=== PATIENT | female | born 1955 | race African-American/Black ===

== ENCOUNTER → 2016-11-14 | Outpatient (CLI) | payer OTHER ==
[2015-05-16 22:48] VITALS: BP 120/77
[~2016-11-14] MED LIST: Albuterol Sulfate NEB; DIPH25CA58 PO; FAMO-68 PO; IBUP800T19 PO; METH4TAB2 PO
--- NOTE | 2016-11-14 14:08 | CARD ---
APPROVED REPORT EXAM: Two-dimensional and M-mode echocardiogram with Doppler and color Doppler. Other Information Quality : GoodHR: 75bpm Rhythm : NSR INDICATION Non ischemic cardiomyopathy RISK FACTORS Hypertension Obesity Family History 2D DIMENSIONS RVDd2.8 (2.9-3.5cm)Left Atrium(2D)3.4 (1.6-4.0cm) IVSd1.2 (0.7-1.1cm)Aortic Root(2D)3.0 (2.0-3.7cm) LVDd4.4 (3.9-5.9cm)LVOT Diameter2.2 (1.8-2.4cm) PWd1.3 (0.7-1.1cm)LVDs3.3 (2.5-4.0cm) FS (%) 23.9 %SV41.2 ml LVEF(%)47.9 (>50%) Aortic Valve AoV Peak Elia.124.2cm/sAoV VTI25.3cm AO Peak GR.6.2mmHgLVOT Peak Elia.98.3cm/s LVOT VTI 18.28cmAO Mean GR.3mmHg WIN (VMAX)2.86ws5QCO (VTI)2.64cm2 Mitral Valve MV E Xgvcqpmu93.5cm/sMV E Peak Gr.6mmHg MV DECEL [id number] A Ccezgjcw018.9cm/s MV E Mean Gr.2mmHgE/A Ratio0.7 MV A [id number] Pulmonary Valve PV Peak Gzusocny99.5cm/sPV Peak Grad.2mmHg LEFT VENTRICLE The left ventricle is normal size. There is mild concentric left ventricular hypertrophy. Left ventri prasanth systolic function is mildly impaired. The Ejection Fraction is 45%. There is mild global hypokine sis of the left ventricle. Transmitral Doppler flow pattern is Grade I-abnormal relaxation pattern. N o left ventricle thrombus noted on this study. RIGHT VENTRICLE The right ventricle is normal size. There is normal right ventricular wall thickness. The right ventr icular systolic function is normal. ATRIA The left atrium is mildly dilated. The right atrium size is normal. The interatrial septum is intact with no evidence for an atrial septal defect or patent foramen ovale as noted on 2-D or Doppler imagi ng. AORTIC VALVE The aortic valve is mildly thickened. Doppler and Color Flow revealed no significant aortic regurgita tion. There is no significant aortic valvular stenosis. MITRAL VALVE The mitral valve leaflets are thickened and calcified. There is no evidence of mitral valve prolapse. There is no mitral valve stenosis. Doppler and Color Flow revealed no mitral valve regurgitation not ed. TRICUSPID VALVE Doppler and Color Flow revealed trace tricuspid valve regurgitation. PULMONIC VALVE The pulmonic valve is not well visualized. Doppler and Color Flow revealed no pulmonic valvular regur gitation. There is no pulmonic valvular stenosis. GREAT VESSELS The aortic root is normal in size. The ascending aorta is normal in size. The IVC is normal in size a nd collapses >50% with inspiration. PERICARDIAL EFFUSION There is no evidence of significant pericardial effusion. Critical Notification Critical Value: No <Conclusion> Left ventricle systolic function is mildly impaired. The Ejection Fraction is 45%. Transmitral Doppler flow pattern is Grade I-abnormal relaxation pattern. Doppler and Color Flow revealed trace tricuspid valve regurgitation. There is no evidence of significant pericardial effusion.
== END | disposition home or self-care (01) ==
LOC: ECHO 09:17
PROVIDERS: ATTEND Internal Medicine Cardiovascular Disease
DX: I42.9 Cardiomyopathy, unspecified (principal); I07.1 Rheumatic tricuspid insufficiency
CPT/HCPCS: 93306

== ENCOUNTER → 2017-10-30 | Outpatient (CLI) | payer OTHER ==
[2015-05-16 22:48] VITALS: BP 120/77
[~2017-10-30] MED LIST changes: -FAMO-68 PO; +FAMO-69 PO
[2017-10-30 09:34] LABS: ALBUMIN 3.5 g/dL (3.4-5.0); CALCIUM 9.1 mg/dL (8.5-10.1); CREATININE 0.7 mg/dL (0.6-1.0); DIRECT BILIRUBIN 0.1 mg/dL (0.0-0.2); GFR 103.3; MAGNESIUM 1.8 mg/dL (1.8-2.4); POTASSIUM 3.7 mmol/L (3.5-5.1); TOTAL BILIRUBIN 0.3 mg/dL (0.2-1.0); TOTAL PROTEIN 7.4 g/dL (6.4-8.2)
== END | disposition home or self-care (01) ==
LOC: LAB 08:32
PROVIDERS: ATTEND Internal Medicine Cardiovascular Disease
DX: I10 Essential (primary) hypertension (principal); E11.9 Type 2 diabetes mellitus without complications; I42.9 Cardiomyopathy, unspecified; Z79.899 Other long term (current) drug therapy
CPT/HCPCS: 36415; 80048; 80061; 80076; 83735

== ENCOUNTER → 2018-06-05 | Outpatient (CLI) | payer MEDICARE ==
[2015-05-16 22:48] VITALS: BP 120/77
== END | disposition home or self-care (01) ==
LOC: LAB 08:51
PROVIDERS: ATTEND Internal Medicine Cardiovascular Disease
DX: E78.5 Hyperlipidemia, unspecified (principal)
CPT/HCPCS: 80061

== ENCOUNTER → 2018-07-15 | Outpatient (CLI) | payer MEDICARE ==
[2015-05-16 22:48] VITALS: BP 120/77
--- NOTE | 2018-07-15 15:24 | RAD ---
Right foot, 3 views, 07/15/2018: HISTORY: Foot pain There is a mild hallux valgus deformity with degenerative change at the first MTP joint. There is only minimal spurring at the mid foot level. No fracture or dislocation is identified. No destructive bony lesion is seen. There is moderate diffuse subcutaneous edema. IMPRESSION: 1. Mild hallux valgus deformity with moderate degenerative change at the first MTP joint. 2. No acute bony abnormality is detected. Electronically signed by: Lakhwinder Rice MD (07/15/2018 3:20 PM) [facility]
== END | disposition home or self-care (01) ==
LOC: RAD 14:43
PROVIDERS: ATTEND General Practice
DX: M20.11 Hallux valgus (acquired), right foot (principal); M19.071 Primary osteoarthritis, right ankle and foot; M77.51 Other enthesopathy of right foot and ankle; R60.0 Localized edema
CPT/HCPCS: 73630

== ENCOUNTER → 2018-11-19 | Outpatient (CLI) | payer MEDICARE, OTHER ==
[2015-05-16 22:48] VITALS: BP 120/77
--- NOTE | 2018-11-19 16:39 | RAD ---
Two-view right hip dated 11/19/2018. No comparison available. Clinical data indication: Right hip pain. No known injury. FINDINGS: 2 views right hip show normal bony alignment. No displaced fracture. No acute osseous or articular abnormality. No periostitis or bone destruction. IMPRESSION: No acute radiographic abnormality. Electronically signed by: Shayne Alvarado MD (11/19/2018 4:36 PM) [id number]
== END | disposition home or self-care (01) ==
LOC: RAD 10:27
PROVIDERS: ATTEND General Practice
DX: M25.551 Pain in right hip (principal)
CPT/HCPCS: 73502

== ENCOUNTER 2019-08-02 16:11 | Observation (INO) | payer MEDICARE, OTHER ==
[~2019-08-02] VITALS: Ht 162.6 cm; Wt 108.0 kg
--- NOTE | 2019-08-02 16:41 | PHYS DOC ---
Past History Past Medical History: CAD, Diabetes, DVT, High Cholesterol, Hypertension, Other Past Surgical History: Cholecystectomy, Hysterectomy Smoking: Non-smoker Alcohol Use: Occasionally Drug Use: None Adult General Chief Complaint Chief Complaint: CHEST PAIN HPI HPI Patient is a 64-year-old female with a history of cardiomyopathy, hypertension, hyperlipidemia, diabetes, DVT presents to the ED with chest pain. Patient states that she has experienced a left-sided chest pain that has been constant since Sunday. Pain is described as sharp and radiating to the left arm. Alleviating factors are none. Patient also reports some lower extremity swelling and shortness of breath, but these are chronic issues and she states that they have not gotten worse than baseline. Denies cough, fevers, or chills. Patient denies lower extremity pain. Denies rash. Denies trauma. Review of Systems Review of Systems Constitutional: Denies fever or chills Eyes: Denies redness or eye pain HENT: Denies nasal congestion or sore throat Respiratory: Reports cough and shortness of breath (chronic) Cardiovascular: Reports chest pain, denies palpitations GI: Denies abdominal pain, nausea, or vomiting : Denies dysuria or hematuria Musculoskeletal: Denies back pain or joint pain. Reports lower extremity swelling (chronic). Integument: Denies rash or skin lesions Neurologic: Denies headache, focal weakness or sensory changes Complete systems were reviewed and found to be within normal limits, except as documented in this note. Allergies Allergies Allergies Coded Allergies Type Severity Reaction Last Updated Verified Penicillins Allergy Severe sob 05/17/15 No shellfish derived Allergy Severe swelling, dyspnea and rash 05/17/15 No Uncoded Allergies Type Severity Reaction Last Updated Verified multiple foods Allergy Severe sob 04/26/14 Physical Exam Physical Exam Constitutional: Well developed, well nourished, no acute distress, non-toxic appearance HENT: Normocephalic, atraumatic, oropharynx moist Eyes: PERRL, EOMI, conjunctiva normal, no discharge Neck: Normal range of motion, no tenderness, supple Cardiovascular: Heart rate normal, regular rhythm Lungs & Thorax: Bilateral breath sounds clear to auscultation, no wheezing Abdomen: Soft, no tenderness Skin: Warm, dry, no erythema, no rash Back: No tenderness, no CVA tenderness Extremities: No tenderness, ROM intact, no edema Neurologic: Alert and oriented X 3, normal motor function, normal sensory function, no focal deficits noted Psychologic: Affect normal, judgement normal EKG EKG @1624 NSR at 89bpm, NO ST elevation, occasional PVC Radiology/Procedures Radiology/Procedures PROCEDURE: CT ANGIOGRAPHY CHEST Chest CTA History: Chest pain, elevated d-dimer Technique: After bolus of intravenous contrast, CT imaging was performed of the chest. Multiplanar reconstruction images to include MIP reconstruction images are submitted. Exposure: One or more of the following individualized dose reduction techniques were utilized for this examination: 1. Automated exposure control 2. Adjustment of the mA and/or kV according to patient size 3. Use of iterative reconstruction technique. Comparison: May 17, 2015 Findings: There is some motion degradation. There is also beam attenuation by the soft tissues. Accurate evaluation for pulmonary emboli is limited of the smaller and more distal branches, no embolism identified in the more central/ main pulmonary arteries or proximal segmental branches. There is again more reticular appearing density of the right lung base which is unchanged in appearance, evidence of fibrotic change. Major airways are patent. There is no pericardial or pleural fluid, pneumothorax, or lobar infiltrate. Tiny dense nodule posteriorly in the left upper lobe is unchanged about 0.3 cm image 39 series 4. Heart is somewhat enlarged. There is no new significant lymphadenopathy of the chest. Thoracic aortic caliber is within normal limits, no intraluminal flap. There is hepatic steatosis. There is multilevel thoracic degenerative disc disease. Impression: 1. No central pulmonary embolism is identified, limited evaluation of the more distal and smaller branches on this exam. 2. Heart is somewhat enlarged. 3. There is hepatic steatosis. Electronically signed by: Colin Chi MD (08/02/2019 7:11 PM) [facility] Course & Med Decision Making Course & Med Decision Making Pertinent Labs and Imaging studies reviewed. (See chart for details) Patient is a history of heart disease, hypertension, HTN, diabetes, and DVT presents to the ED with a week of sharp chest pain. EKG stable. Pain addressed. Labs obtained and posted to chart. D-dimer elevated. CTA ordered after review of records shows patient received IV dye without issues in the past. CTA chest without acute process. Troponin WNL. HEART score: 4 Patient requiring observation admission for further evaluation and treatment. Discussed with Dr. Kahn (hospitalist) who is in agreement with admission. Discuss ed findings and plan with patient and family, who acknowledge understanding and agreement. Patient was comfortably in the ED Dragon Disclaimer Dragon Disclaimer This electronic medical record was generated, in whole or in part, using a voice recognition dictation system. Departure Departure: Impression: Primary Impression: Chest pain Disposition: ADMITTED INPATIENT Admitting Physician: Orion Kahn Condition: STABLE Referrals: PCP,NO (PCP) HEART Score for Chest Pain PTs The HEART Score for CP Pts HEART Score for Chest Pain: HEART Score for Chest Pain Response (Comments) Value History Moderately Suspicious 1 ECG Normal 0 Age >45 - < 65 1 Risk Factors >3 Risk Factors or Hx CAD 2 Troponin < Normal Limit 0 Total 4 Risk Factors: Risk Factors: DM, Current or recent (<one month) smoker, HTN, HLP, family history of CAD, obesity. Risk Scores: Score 0 - 3: 2.5% MACE over next 6 weeks - Discharge Home Score 4 - 6: 20.3% MACE over next 6 weeks - Admit for Clinical Observation Score 7 - 10: 72.7% MACE over next 6 weeks - Early Invasive Strategies Problem Qualifiers Primary Impression: Chest pain Chest pain type: unspecified Qualified Codes: R07.9 - Chest pain, unspecified CLARK BURNS DO Aug 02, 2019 16:41
[2019-08-02 16:45] LABS: BASO # 0.1 x10^3/uL (0.0-0.2); BASO % 1 % (0-3); EOS # 0.3 x10^3/uL (0.0-0.7); EOS % 3 % (0-3); HEMATOCRIT 41.1 % (36.0-47.0); HEMOGLOBIN 13.8 g/dL (12.0-15.5); LYMPH % 26 % (24-48); MEAN CORPUSCULAR HEMOGLOBIN 33 pg (25-35); MEAN CORPUSCULAR HGB CONC 34 g/dL (31-37); MEAN CORPUSCULAR VOLUME 98 fL (79-100); MONO # 0.8 x10^3/uL (0.0-1.1); MONO % 10 % (0-9); NEUT # 4.8 x10^3uL (1.8-7.7); NEUT % 61 % (31-73); PLATELET COUNT 224 x10^3/uL (140-400); RED BLOOD COUNT 4.18 x10^6/uL (3.50-5.40); RED CELL DISTRIBUTION WIDTH 13.2 % (11.5-14.5); WHITE BLOOD COUNT 7.9 x10^3/uL (4.0-11.0)
[2019-08-02] MEDS ORDERED: IV NORMAL SALINE 1,000ML 1,000 ML IV ONE ×2 (16:45→19:45)
--- NOTE | 2019-08-02 17:04 | EKG ---
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
[2019-08-02 17:43] LABS: CALCIUM 8.8 mg/dL (8.5-10.1); CREATININE 0.6 mg/dL (0.6-1.0); GFR 122.6; POTASSIUM 3.2 mmol/L (3.5-5.1)
[2019-08-02 17:59] LABS: ALBUMIN 3.4 g/dL (3.4-5.0); ALBUMIN/GLOBULIN RATIO 0.9 (1.0-1.7); MAGNESIUM 1.8 mg/dL (1.8-2.4); TOTAL BILIRUBIN 0.2 mg/dL (0.2-1.0); TOTAL PROTEIN 7.1 g/dL (6.4-8.2)
[2019-08-02] MEDS ORDERED: IOHEXOL 350 MG/ML 100 ML VIAL. IV ONE (18:15)
[2019-08-02] MEDS ORDERED: ASPIRIN 325 MG TABLET PO ONE (18:15)
[2019-08-02] MEDS ORDERED: CONTRAST GIVEN MC PRN (18:15)
[2019-08-02] MEDS ORDERED: POTASSIUM CHLORIDE 20 MEQ TABLET.ER. PO ONE (18:15)
--- NOTE | 2019-08-02 19:14 | RAD ---
Chest CTA History: Chest pain, elevated d-dimer Technique: After bolus of intravenous contrast, CT imaging was performed of the chest. Multiplanar reconstruction images to include MIP reconstruction images are submitted. Exposure: One or more of the following individualized dose reduction techniques were utilized for this examination: 1. Automated exposure control 2. Adjustment of the mA and/or kV according to patient size 3. Use of iterative reconstruction technique. Comparison: May 17, 2015 Findings: There is some motion degradation. There is also beam attenuation by the soft tissues. Accurate evaluation for pulmonary emboli is limited of the smaller and more distal branches, no embolism identified in the more central/ main pulmonary arteries or proximal segmental branches. There is again more reticular appearing density of the right lung base which is unchanged in appearance, evidence of fibrotic change. Major airways are patent. There is no pericardial or pleural fluid, pneumothorax, or lobar infiltrate. Tiny dense nodule posteriorly in the left upper lobe is unchanged about 0.3 cm image 39 series 4. Heart is somewhat enlarged. There is no new significant lymphadenopathy of the chest. Thoracic aortic caliber is within normal limits, no intraluminal flap. There is hepatic steatosis. There is multilevel thoracic degenerative disc disease. Impression: 1. No central pulmonary embolism is identified, limited evaluation of the more distal and smaller branches on this exam. 2. Heart is somewhat enlarged. 3. There is hepatic steatosis. Electronically signed by: Colin Chi MD (08/02/2019 7:11 PM) [facility]
[2019-08-02] MEDS ORDERED: ONDANSETRON PF 4 MG/2 ML VIAL. IV PRN (19:45)
[2019-08-02] MEDS ORDERED: DEXTROSE 50% 25 GM / 50ML DISP.SYRIN. IV PRN (19:45)
--- NOTE | 2019-08-02 21:20 | NUR ---
The patient, AGNIESZKA BARNES, 64 y/o, F admitted by KEYONA MUÑOZ MD, was given written information regarding hospital policies, unit procedures and contact persons. Patient alert and oriented x 4. Patient oriented to room, bed, call light and plan of care. Patient denies any current c/o chest pain. Patient resting in bed with call light in reach. See admission assessment/documentation. Valuables were checked and .
[2019-08-02 21:36] VITALS: BP 149/93
[2019-08-02] MEDS ORDERED: CARV3.1230 PO (22:25)
[2019-08-02] MEDS ORDERED: GLIM1TAB7 PO (22:26)
[2019-08-02] MEDS ORDERED: FENO54TA PO (22:27)
[2019-08-02] MEDS ORDERED: FURO40TA4 PO (22:27)
[2019-08-02] MEDS ORDERED: TRIA1CAP3 PO (22:30)
[2019-08-02] MEDS ORDERED: CHOL200078 PO (22:30)
[2019-08-03 05:06] VITALS: BP 106/70
--- NOTE | 2019-08-03 05:23 | NUR ---
Routine consult for Dr. Griffin called to [phone].
[2019-08-03] MEDS ORDERED: INSULIN LISPRO 300 UNITS/3 ML VIAL. SQ SCH (08:00)
--- NOTE | 2019-08-03 08:27 | HP ---
ADMIT DATE: 08/03/2019 ATTENDING PHYSICIAN: Dr. Muñoz. CHIEF COMPLAINT: Chest pain. HISTORY OF PRESENT ILLNESS: The patient is a 64-year-old female with a known history of hypertension, hyperlipidemia, supposed cardiomyopathy, diabetes and previous DVT. She presented to the ED with a 5-day history of constant left-sided chest pain, sharp and radiating to the left arm. No alleviating factors. She denied any shortness of breath. She has had some chronic back pain and what it sounds like a left-sided sciatica pain. She has been taking a daily dose of ibuprofen, which I believe is the culprit. In the ED, she had entirely negative workup. Cardiac enzymes were initially negative. CT angiogram showed no blood clots, given the history of pulmonary embolus. She was admitted then for further treatment and evaluation. PAST MEDICAL HISTORY: Significant for DVT, type 2 diabetes, coronary artery disease, high cholesterol, hypertension. PAST SURGICAL HISTORY: Cholecystectomy and hysterectomy. CURRENT MEDICINES: Include Coreg, Lasix, Amaryl, and vitamin D3. ALLERGIES: SHE HAS MULTIPLE ALLERGIES INCLUDING PENICILLIN, SHELLFISH AND OTHER FOOD PRODUCTS. EXACT ETIOLOGY IS UNCLEAR. FAMILY HISTORY: Noncontributory. SOCIAL HISTORY: She was a smoker up to 10 years ago. She denies any alcohol use. She is currently not working. 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 She is and lives with her . REVIEW OF SYSTEMS: Significant for the localized chest pain. She has been taking ibuprofen. No fevers, chills, palpitations. She has had left-sided sciatica pain starting in her back, radiating down the left buttock down the lateral portion of her leg. The pain is worse upon standing and improved upon sitting. All other systems reviewed and determined to be negative. PHYSICAL EXAMINATION: GENERAL: When I saw her, this is a pleasant female who was alert and oriented. INITIAL VITAL SIGNS: Showed a blood pressure of 149/93, pulse of 78 and regular. She was afebrile. Oxygen saturation 97% on room air. HEENT: Head is without trauma. Pupils are reactive. Sclerae nonicteric. Oropharynx is clear. NECK: Supple, no bruits identified. LUNGS: Otherwise clear. CARDIOVASCULAR: Showed regular heart tones. No obvious gallops. Peripheral pulses are palpable and full. ABDOMEN: Obese, protuberant. No organomegaly. Bowel sounds were hypoactive. EXTREMITIES: Showed no cyanosis or edema. NEUROLOGIC: Findings focally intact. No focal deficits. Speech was fluid. PERTINENT LABORATORY STUDIES AND X-RAY STUDIES: The CT angiogram showed no evidence of blood clot. Cardiac enzymes initially were negative for myocardial necrosis. EKG was nondiagnostic. LABORATORY STUDIES: Hemoglobin was 13.8 g/dL with white count of 7900. Chemistry panel, initial set of cardiac enzymes negative for myocardial necrosis. Sodium 143, potassium 3.2 mEq. This will be replaced. Glucose was 100. ASSESSMENT: 1. A 64-year-old female with a localized chest discomfort. I believe this is noncardiac in nature. 2. Probable gastroesophageal reflux disease, aggravated by the ibuprofen and NSAID gastritis. 3. Left-sided sciatica. 4. Essential hypertension. 5. Type 2 diabetes. 6. History of pulmonary embolus in the past. PLAN: 1. Observation status admission. 2. Serial enzymes. 3. Proton pump inhibitor. 4. Potassium replacement. 5. Percocet p.r.n. pain. KEYONA UMÑOZ MD DR: LUBA/jovany JOB#: [id number] / [id number]
--- NOTE | 2019-08-03 08:32 | DS ---
DATE OF DISCHARGE: 08/03/2019 ATTENDING PHYSICIAN: Dr. Muñoz. FINAL DISCHARGE DIAGNOSES: 1. Atypical chest pain, noncardiac. 2. NSAID gastritis. 3. Gastroesophageal reflux disease. 4. Obesity. 5. Hypertension. 6. Type 2 diabetes. 7. Left-sided sciatica. 8. History of degenerative disk disease. HISTORY AND PHYSICAL: This is a pleasant 64-year-old female admitted to the ED with atypical left-sided chest pain radiating down her arm, constant, ongoing for the last 5 days. PHYSICAL EXAMINATION: Please see the dictated note. PERTINENT LABORATORY AND X-RAY STUDIES: Serial cardiac enzymes were negative for myocardial necrosis. EKG was nondiagnostic. Chest x-ray was clear. CT angiogram done in the ED showed no evidence of blood clot. Other laboratory studies showed a normal hemoglobin. Chemistry panel was unremarkable except for potassium of 3.2 mEq. She was asymptomatic. COURSE IN THE HOSPITAL: The patient was admitted overnight. She did well. Symptoms were not as severe, enzymes were negative, reassurance. At this time, she was ready for discharge. I recommended continuation of her Coreg, fenofibrate, Lasix only, stop triamterene/hydrochlorothiazide and continue the glimepiride daily. In addition, I recommended 7 days of potassium supplementation in the form of K-Dur 20 mEq daily, Nexium 40 mg p.o. daily for the next month and finally Percocet 10/325 one every 6 hours as needed for severe pain. She will follow up with her PCP and do conservative therapy for her back. I reassured her that her symptoms were related to her ibuprofen use. I strongly advised no further ibuprofen or aqct-ccg-[id number] NSAID use. The patient was then discharged from our hospital in stable condition with explicit instructions and followup care. KEYONA MUÑOZ MD DR: LUBA/jovany JOB#: [id number] / [id number]
--- NOTE | 2019-08-03 10:04 | NUR ---
Pt discharged home for self care. Pt iv dc'd pressure dressing applied, no complications. Pt given verbal and written discharge, follow up, and medication instructions. Verbal understanding of instructions received form pt. Pt left unit in stable condition via ambulation.
== END 2019-08-03 09:30 | disposition home or self-care (01) ==
LOC: ER 16:11 → 1 SOUTH 20:33
PROVIDERS: ADMIT Hospitalist; ATTEND Hospitalist
DX: R07.89 Other chest pain (principal); M54.32 Sciatica, left side; I10 Essential (primary) hypertension; E11.9 Type 2 diabetes mellitus without complications; I25.10 Atherosclerotic heart disease of native coronary artery without angina pectoris; K21.9 Gastro-esophageal reflux disease without esophagitis; K29.70 Gastritis, unspecified, without bleeding; E78.5 Hyperlipidemia, unspecified; E66.9 Obesity, unspecified; Z87.39 Personal history of other diseases of the musculoskeletal system and connective tissue; Z86.711 Personal history of pulmonary embolism; Z90.710 Acquired absence of both cervix and uterus; Z87.891 Personal history of nicotine dependence; Z86.718 Personal history of other venous thrombosis and embolism
CPT/HCPCS: 36415; 71275; 80053; 82553; 82947; 83690; 83735; 83880; 84484; 85025; 85379; 85610; 85730; 93005; 96374; 99284; G0378; J3010; Q9967; G0379; J7030

== ENCOUNTER → 2020-11-18 | Outpatient (CLI) | payer MEDICARE, OTHER ==
[~2020-11-18] MED LIST changes: +CARV3.1230 PO; +CHOL200078 PO; +FENO54TA PO; +FURO40TA4 PO; +GLIM1TAB7 PO; +TRIA1CAP3 PO
--- NOTE | 2020-11-19 08:42 | RAD ---
DATE: November 18, 2020 EXAM: MAMMO COLIN SCREENING BILATERAL HISTORY: Screening study. COMPARISON: None available. Previous mammogram was performed over 10 years ago. Therefore, this is a new baseline study. This study was interpreted with the benefit of Computerized Aided Detection (CAD). FINDINGS: Breast Density: FATTY The breast parenchyma is primarily fatty replaced. Breast parenchyma level density A.. There is a nodule present within the lateral aspect of the left breast at the 3-4:00 position. It measures 8 mm in size. There is a nodule of the right breast located at the 9:00 position. It measures 10 mm. No clustering of pleomorphic microcalcifications are evident on either side. IMPRESSION: Bilateral breast nodules. Recommend bilateral breast sonography. BI-RADS CATEGORY: 0 INCOMPLETE: NEEDS ADDITIONAL IMAGING EVALUATION AND/OR PRIOR MAMMOGRAMS FOR COMPARISON. RECOMMENDED FOLLOW-UP: ADD ADDITIONAL IMAGING PQRS compliance statement: Patient information was entered into a reminder system with a target due date now for the next imaging study. Mammography is a sensitive method for finding small breast cancers, but it does not detect them all and is not a substitute for careful clinical examination. A negative mammogram does not negate a clinically suspicious finding and should not result in delay in biopsying a clinically suspicious abnormality. "Our facility is accredited by the [employer] Mammography Program." The patient's breast density may affect the ability of mammography to detect breast cancer. There are 4 categories of breast density, A, B, C and D. Breast density A means that most of the breast tissue is replaced with adipose tissue and therefore is not dense. Breast density B means that the breast tissue is mildly dense and scattered. Breast density C means that the breast tissue is heterogeneously dense. Breast density D means that the breast tissue is very dense. Breast densities especially C and D may decrease the sensitivity of mammography to detect breast cancer. Therefore, the patient may benefit from 3-D breast mammography (3D breast tomography) as a part of their screening mammogram. Insurance may or may not pay for this additional imaging. The patient's breast density based on today's mammogram is category A.
== END ==
LOC: MAMMO 14:06
PROVIDERS: ATTEND Family Medicine
DX: Z12.31 Encounter for screening mammogram for malignant neoplasm of breast (principal); N64.89 Other specified disorders of breast
CPT/HCPCS: 77063; 77067

== ENCOUNTER → 2020-11-24 | Outpatient (CLI) | payer MEDICARE, OTHER ==
--- NOTE | 2020-11-24 13:46 | RAD ---
EXAM: Bilateral breast sonogram. HISTORY: 65-year-old female presents for evaluation of areas of nodularity within both breasts demons trated on a screening mammogram dated 11/18/2020. TECHNIQUE: Sonographic imaging of both breasts targeted to sites of mammographic nodularity was perfo rmed. COMPARISON: 11/18/2020. FINDINGS: Sonographic imaging of the right breast demonstrates a 4 mm partially peripherally calcifie d oil cyst at the retroareolar location. There is no suspicious finding within the 9:00 position at a nterior to mid depth. There is a 9 mm suspected axillary tail lymph node at the posterior 9:30 positi on 10 cm from the nipple. Sonographic imaging of the left breast demonstrates a 7 mm suspected complicated cyst or fibroadenoma at the 2:00 position 5 cm from the nipple. This likely corresponds with the mammographic finding of concern. There is no additional lesion within the left breast. IMPRESSION: 1. 9 mm suspected right axillary tail lymph node at the posterior 9:30 position. There is no convinci ng correlate for nodularity anteriorly within the right breast. This favors benignity. Follow-up with a right breast mammogram in 6 months is recommended to confirm mammographic stability. 2. 7 mm suspected complicated cyst or fibroadenoma at the 2:00 position of the left breast. Sonograph ic follow-up in 6 months is recommended to confirm sonographic stability. 3. BI-RADS Category 3: Probably benign finding(s). Short term follow up with a right breast diagnosti c mammogram and left breast sonogram in 6 months is recommended. Electronically signed by: Tosin Rod MD (11/24/2020 1:44 PM) [id number]
== END ==
LOC: US 12:49
PROVIDERS: ATTEND Family Medicine
DX: N60.01 Solitary cyst of right breast (principal)
CPT/HCPCS: 76641